=== PATIENT | female | born 1950 | race Caucasian/White ===

== ENCOUNTER 2020-02-08 17:39 | Emergency (ER) | payer MEDICARE ==
--- NOTE | 2020-02-08 17:54 | UC ---
Respiratory Complaint HPI - HPI Summary HPI Summary: 69 yo female presents with flu-like symptoms. She tells me that she has been on quarantine for COVID as she had a positive exposure on 01/27. She has had no symptoms until today. She developed a temperature of 100.3F today and fatigue, but no other symptoms. She told the health department and they advised her to be tested for COVID - prompting her visit here. Nothing today for her symptoms. Does not smoke. Denies sore throat, SOB, chest pain, abdominal pain, n/v. No recent travel - History of Current Complaint Stated Complaint: FEVER Time Seen by Provider: 02/08/20 17:53 Hx Obtained From: Patient Onset/Duration: Sudden Onset Severity Initially: Mild Severity Currently: Mild Pain Intensity: 3 Pain Scale Used: 0-10 Numeric - Allergies/Home Medications Allergies/Adverse Reactions: Allergies Allergy/AdvReac Type Severity Reaction Status Date / Time No Known Allergies Allergy Verified 02/08/20 18:09 Home Medications: Home Medications Apixaban* [Eliquis*] 02/08/20 [History] Cetirizine* [ZyrTEC 10 MG TAB*] 10 mg PO DAILY 02/08/20 [History Confirmed 02/07] Cholecalciferol TAB* [Vitamin D TAB*] 02/08/20 [History] Flaxseed Oil 02/08/20 [History] Montelukast Sodium TAB* [Singulair 5 mg TAB*] 02/08/20 [History] [place]-3 Fatty Acids (Nf) [Fish Oil (NF)] 1,000 mg PO DAILY 02/08/20 [History Confirmed 02/08/20] PMH/Surg Hx/FS Hx/Imm Hx - Additional Past Medical History Additional PMH: PE DVT - Surgical History Surgical History: Yes Surgery Procedure, Year, and Place: tubal ligation in the s - Family History Known Family History: Positive: Cardiac Disease - Social History Occupation: Employed Full-time Lives: With Family Alcohol Use: Occasionally Substance Use Type: None Smoking Status (MU): Never Smoked Tobacco Review of Systems All Other Systems Reviewed And Are Negative: No Constitutional: Positive: Fever, Fatigue Skin: Positive: Negative Eyes: Positive: Negative ENT: Positive: Negative Respiratory: Positive: Negative Cardiovascular: Positive: Negative Gastrointestinal: Positive: Negative Genitourinary: Positive: Negative Neurological/Mental Status: Positive: Negative Psychological: Positive: Negative Physical Exam - Summary Physical Exam Summary: GENERAL: NAD. WDWN. No pain distress. SKIN: No rashes, sores, lesions, or open wounds. HEENT: Head: AT/NC Eyes: EOM intact. Conjunctiva clear without inflammation or discharge. Ears: Hearing grossly normal. TMs intact, no bulging, erythema, or edema. Nose: Nasal mucosa pink and moist. NTTP maxillary and frontal sinus. Throat: Posterior oropharynx without exudates, erythema, or tonsillar enlargement. Uvula midline. NECK: Supple. Nontender. No lymphadenopathy. CHEST: CTAB. No r/r/w. No accessory muscle use. Breathing comfortably and in no distress. CV: RRR. Pulses intact. Cap refill <2seconds NEURO: Alert. PSYCH: Age appropriate behavior. Triage Information Reviewed: Yes Vital Signs: Vital Signs: Temp Pulse Resp BP Pulse Ox 99 F 100 16 168/78 98 02/08/20 18:28 02/08/20 18:28 02/08/20 18:28 02/08/20 18:28 02/08/20 18:28 Laboratory Tests 02/08/20 18:32 Influenza A (Rapid) Negative Influenza B (Rapid) Negative Vital Signs Reviewed: Yes Respiratory Course/Dx - Course Course Of Treatment: POC flu negative. Exam performed utilizing CDC recommended PPE. You are being tested for COVID-19. You need to quarantine yourself in a bedroom and bathroom only you are using. You may not leave the house. [facility] will contact you and notify of results when they are available. Advised to be on home isolation until cleared by the health department. Go to ED for increased SOB or any difficulty breathing - new or worsening symptoms. - Differential Dx/Diagnosis Provider Diagnosis: Viral syndrome Discharge ED - Sign-Out/Discharge Documenting (check all that apply): Patient Departure All imaging exams completed and their final reports reviewed: No Studies - Discharge Plan Condition: Stable Disposition: HOME Patient Education Materials: Viral Syndrome (ED) Referrals: Darrell Jones MD [Primary Care Provider] - Additional Instructions: FLU TEST NEGATIVE TODAY You are being tested for COVID-19. You need to quarantine yourself in a bedroom and bathroom only you are using. You may not leave the house. [facility] will contact you and notify of results when they are available. Advised to be on home isolation until cleared by the health department. Go to ED for increased SOB or any difficulty breathing - new or worsening symptoms. - Billing Disposition and Condition Condition: STABLE Disposition: Home
--- OUTSIDE RECORDS SUMMARY | 2020-02-08 18:00 | XMS REPORT | Continuity of Care Document ---
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 [phone] Problems Active Problems Provider Date Current tear of medial cartilage AND/OR meniscus Chaim Palomino MD Onset: of knee Localized, primary osteoarthritis Chaim Palomino MD Onset: 07/15/2017 Social History Type Date Description Comments Sex Unknown ETOH Use Occasionally consumes alcohol Tobacco Use Start: Unknown End: Patient is a former smoker Unknown Smoking Status Reviewed: 01/06/20 Patient is a former smoker Exercise Type/Frequency Exercises regularly Allergies, Adverse Reactions, Alerts Description No Known Drug Allergies Medications Active Medications SIG Qnty Indications Ordering Provider Date Omeprazole 1 by mouth every Unknown 20mg Capsules day DR Vitamin D High Potency 1 by mouth every Unknown day 1000Unit Capsules Montelukast Sodium 1 by mouth every Unknown 10mg day Tablets Zyrtec Allergy 1 by mouth every Unknown 10mg day Capsules Calcium 500 + D3 1 tab by mouth 2x Unknown per day [id number] Tablets Eliquis bid Unknown 2.5mg Tablets Pepcid 1 by mouth every Unknown 40mg Tablets night at bedtime Medications Administered in Office Medication SIG Qnty Indications Ordering Provider Date Injection Hyaluronan Or Chaim Palomino MD 12/28/2019 Derivative, Euflexxa Per Dose Injection Injection Hyaluronan Shankar Palomino MD 12/23/2019 Derivative, Euflexxa Per Dose Injection Injection Hyaluronan Or Chaim Palomino MD 08/19/2017 Derivative, Euflexxa Per Dose Injection Injection Hyaluronan Or Chaim Palomino MD 08/12/2017 Derivative, Euflexxa Per Dose Injection Injection Hyaluronan Or Chaim Palomino MD 08/05/2017 Derivative, Euflexxa Per Dose Injection Triamcinolone (Kenalog) Monserrat Og PA-C 04/10/2017 Injection Immunizations Description No Information Available Vital Signs Date Vital Result Comment 01/06/2020 8:49am Height 67 inches 5'7" Weight 160.00 lb Heart Rate 60 /min BP Systolic 140 mmHg BP Diastolic 80 mmHg Respiratory Rate 18 /min Pain Level 1 BMI (Body Mass Index) 25.1 kg/m2 12/28/2019 1:50pm Weight 160.00 lb Heart Rate 64 /min BP Systolic Sitting 138 mmHg BP Diastolic Sitting 70 mmHg Respiratory Rate 16 /min Pain Level 1 Results Description No Information Available Procedures Date Code Description Status 01/06/2020 08169 Inject/Drain Joint/Bursa Major W/O US Completed 12/28/2019 80131 Inject/Drain Joint/Bursa Major W/O US Completed 12/23/201950918 Inject/Drain Joint/Bursa Major W/O US Completed Medical Devices Description No Information Available Encounters Type Date Location Provider Dx Diagnosis Office Visit 11/30/2019 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 Shannan Perez MD L57.0 Actinic keratosis 9:30a L82.1 Other seborrheic keratosis L85.3 Xerosis cutis L81.4 Other melanin hyperpigmentation Assessments Date Code Description Provider 01/06/2020 M17.11 Unilateral primary osteoarthritis, right knee Chaim Palomino MD 12/28/2019 M17.11 Unilateral primary osteoarthritis, right knee Chaim Palomino MD 12/23/2019 M17.11 Unilateral primary osteoarthritis, right knee Chaim Palomino MD 11/30/2019 D48.5 Neoplasm of uncertain behavior of skin Shannan Perez MD 10/12/2019 L57.0 Actinic keratosis Shannan Perez MD 10/12/2019 L82.1 Other seborrheic keratosis Shannan Perez MD 10/12/2019 L85.3 Xerosis cutis Shannan Perez MD 10/12/2019 L81.4 Other melanin hyperpigmentation Shannan Perez MD Plan of Treatment 01/06/2020 - Chaim Palomino, MDM17.11 Unilateral primary osteoarthritis, right kneeFollow up:Follow up: with marce as needed Functional Status Description No Information Available Mental Status Description No Information Available Referrals Description No Information Available
--- OUTSIDE RECORDS SUMMARY | 2020-02-08 18:00 | XMS REPORT | Continuity of Care Document ---
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 Problems Active Problems Provider Date Current tear of medial cartilage AND/OR meniscus Chaim Palomino MD Onset: of knee Localized, primary osteoarthritis Chaim Palomino MD Onset: 07/15/2017 Social History Type Date Description Comments Sex Unknown ETOH Use Occasionally consumes alcohol Tobacco Use Start: Unknown End: Patient is a former smoker Unknown Smoking Status Reviewed: 12/23/19 Patient is a former smoker Exercise Type/Frequency [...] tab by mouth 2x Unknown per day [id number] Tablets Eliquis bid Unknown 2.5mg Tablets Pepcid 1 by mouth every Unknown 40mg Tablets night at bedtime Medications Administered in Office Medication SIG Qnty Indications Ordering Provider Date Injection Hyaluronan Or Chaim Palomino MD 12/23/2019 Derivative, Euflexxa Per Dose Injection Injection Hyaluronan Shankar Palomino MD 08/19/2017 Derivative, Euflexxa Per Dose Injection Injection Hyaluronan Or Chaim Palomino MD 08/12/2017 Derivative, Euflexxa Per Dose Injection Injection Hyaluronan Or Chaim Palomino MD 08/05/2017 Derivative, Euflexxa Per Dose Injection Triamcinolone (Kenalog) Monserrat Og PA-C 04/10/2017 Injection Immunizations Description No Information Available Vital Signs Date Vital Result Comment 12/23/2019 2:18pm Heart Rate 97 /min BP Systolic 130 mmHg BP Diastolic 60 mmHg Respiratory Rate 20 /min Body Temperature 97.3 F Pain Level 1 03/04/2019 8:08am Height 66.5 inches 5'6.50" Weight 170.00 lb Heart Rate 59 /min BP Systolic 122 mmHg BP Diastolic 68 mmHg Respiratory Rate 18 /min Body Temperature 98.0 F Pain Level 4 BMI (Body Mass Index) 27.0 kg/m2 Results Description No Information Available Procedures Date Code Description Status 12/23/201909539 Inject/Drain Joint/Bursa Major W/O US Completed Medical Devices Description No Information Available Encounters Type Date Location Provider Dx Diagnosis Office Visit 11/30/2019 [facility] Dermatology Shannan Perez MD 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 Office Visit 10/12/2019 [facility] Dermatology Shannan Perez MD L57.0 Actinic keratosis 9:30a L82.1 Other seborrheic keratosis L85.3 Xerosis cutis L81.4 Other melanin hyperpigmentation Assessments Date Code Description Provider 12/23/2019 M17.11 Unilateral primary osteoarthritis, right knee Chaim Palomino MD 11/30/2019 D48.5 Neoplasm of uncertain behavior of skin Shannan Perez MD 10/12/2019 L57.0 Actinic keratosis Shannan Perez MD 10/12/2019 L82.1 Other seborrheic keratosis Shannan Perez MD 10/12/2019 L85.3 Xerosis cutis Shannan Perez MD 10/12/2019 L81.4 Other melanin hyperpigmentation Shannan Perez MD Plan of Treatment Future Appointment(s):12/28/2019 2:15 pm - Chaim Palomino MD at [facility] at [facility]9301/06/2020 8:45 am - Chaim Palomino MD at [facility] at [facility]5501/05/2020 2:45 pm - Shannan Perez MD at [facility]12/23/2019 - Chaim Palomino, [facility]17.11 Unilateral primary osteoarthritis , right kneeFollow up:Follow up: 1 week Functional Status Description No Information Available Mental Status Description No Information Available Referrals Description No Information Available
[2020-02-08 18:29] VITALS: BP 168/78
[2020-02-08 18:44] LABS: Influenza A Molecular Negative (Negative); Influenza B Molecular Negative (Negative)
== END 2020-02-08 18:55 | disposition home or self-care (01) ==
LOC: UCEAST 17:39
DX: B34.9 Viral infection, unspecified (principal); I82.409 Acute embolism and thrombosis of unspecified deep veins of unspecified lower extremity; Z79.899 Other long term (current) drug therapy
CPT/HCPCS: 99211; G0463